=== PATIENT | male | born 1955 | race Caucasian/White ===

== ENCOUNTER 2016-11-07 08:27 | Emergency (ER) | payer OTHER ==
[~2016-11-07] VITALS: Ht 182.9 cm; Wt 75.0 kg
[2016-11-07 08:32] VITALS: BP 150/75; PULSE 103; RESP 16; TEMP 98.3; O2SAT 93
[2016-11-07 10:51] VITALS: BP 164/82; PULSE 84; RESP 20; O2SAT 94
[2016-11-07] MEDS ORDERED: ZITHTAB PO (11:14)
[2016-11-07] MEDS ORDERED: VENTAER INH (11:14)
--- NOTE | 2016-11-07 11:18 | PD ---
HPI Chief Complaint: Cold / Flu Symptoms Time Seen by Provider: 08:45 Travel History International Travel<30 days: No Contact w/Intl Traveler<30days: No Traveled to known affect area: No History of Present Illness HPI This patient complains of subjective fever and cough and congestion. No chest pain or presyncopal symptoms. Symptoms severity is mild to moderate. No alleviating factors PFSH Past Medical History Medical History: Denies Significant Hx Diminished Hearing: No Past Surgical History Surgical History: No Previous Surgery Social History Alcohol Use: Yes (ONE DRINK EVERY NIGHT) Tobacco Use: Yes (0.5 PPD) Substance Use: No Allergies-Medications (Allergen,Severity, Reaction): Coded Allergies: No Known Allergies (Unverified , 11/07/16) Reported Meds & Prescriptions Reported Meds & Active Scripts Active Ventolin Hfa 18 GM Inh (Albuterol Sulfate) 90 Mcg/Act Aer 1 Puff INH Q4H PRN Zithromax Z-Jorje (Azithromycin) 250 Mg Dspk 250 Mg PO DIRECTED 500 MG (2 tabs) day 1, then 1 tab days 2-5. Review of Systems General / Constitutional: No: Fever HENT: No: Headaches Cardiovascular: No: Chest Pain or Discomfort Respiratory: Positive: Cough Physical Exam Narrative RESPIRATORY: Respiratory effort unlabored, no retractions or use of accessory muscles. Breath sounds reveal some rhonchi with rare expiratory wheeze GASTROINTESTINAL: Abdomen soft, non-tender, nondistended. Positive bowel sounds. No hepato-splenomegaly, or palpable masses. No guarding. CARDIOVASCULAR: Regular rate and rhythm without murmur. Extremities showed no edema or varicosities. Throat clear Data Data Last Documented VS Vital Signs Date Time Temp Pulse Resp B/P Pulse Ox O2 Delivery O2 Flow Rate FiO2 11/07/16 10:51 84 20 164/82 94 11/07/16 08:44 Room Air 11/07/16 08:32 98.3 MDM Medical Decision Making Medical Screen Exam Complete: Yes Emergency Medical Condition: Yes Medical Record Reviewed: Yes Differential Diagnosis Bronchitis, pneumonia, URI Narrative Course I have reviewed the patient's electronic medical record. Presentation seems most consistent with an acute bronchitis May be viral in nature but given his underlying COPD/smoking I wrote him Zithromax and prescribed an albuterol inhaler and encouraged him to stop smoking The patient was advised to follow up with their physician and return if they worsen. Diagnosis Primary Impression: Acute bronchitis Qualified Code: J20.9 - Acute bronchitis, unspecified organism Additional Instructions: The patient was advised to follow up with their physician and return if they worsen. stop smoking Med/Other Pt SpecificInfo: Prescription(s) given Scripts Albuterol 18 GM Inh (Ventolin Hfa 18 GM Inh)90 Mcg/Act Aer1 Puff INH Q4H PRN ( SHORTNESS OF BREATH) #1 INHALER Ref 0 Prov:Eladio Davidson MD 11/07/16 Azithromycin (Zithromax Z-Jorje)250 Mg [id number] Mg PO DIRECTED #1 DSPK Ref 0 500 MG (2 tabs) day 1, then 1 tab days 2-5. Prov:Eladio Davidson MD 11/07/16 Disposition: 01 DISCHARGE HOME Condition: Stable Eladio Davidson MD November 07, 2016 11:18
== END 2016-11-07 11:40 | disposition home or self-care (01) ==
LOC: NEPE 08:27
DX: J20.9 Acute bronchitis, unspecified (principal); F17.210 Nicotine dependence, cigarettes, uncomplicated
CPT/HCPCS: 99283